=== PATIENT | female | born 1950 | race Caucasian/White ===

== ENCOUNTER 2017-12-13 17:41 | Emergency (ER) | payer OTHER ==
[~2017-12-13] VITALS: Ht 165.1 cm; Wt 69.3 kg
[2017-12-13 19:48] LABS: HEMATOCRIT 29.2 % (36.0-46.0); MCH 31.6 PG (29.0-34.0); MCHC 33.2 G/DL (30.0-36.0); MCV 95.1 FL (83-99); RBC DIS.WIDTH-CV 13.2 % (11.8-14.6); RBC DIS.WIDTH-SD 45.5 % (39-53); WHITE BLOOD COUNT 8.5 K/uL (4.1-10.2)
[2017-12-13 19:53] LABS: INTER. NORMALIZED RATIO 1.2
[2017-12-13 19:56] LABS: PTT 31.4 SEC (25-37)
[2017-12-13 20:00] LABS: HEMOGLOBIN 9.7 G/DL (11.9-15.5); PLATELET COUNT 306 K/uL (156-360); RED BLOOD COUNT 3.07 M/uL (3.80-5.20)
[2017-12-13 20:15] LABS: CHLORIDE 105 mEq/L (99-109); POTASSIUM 4.4 mEq/L (3.7-5.4); SODIUM 139 mEq/L (136-147)
[2017-12-13 20:16] LABS: GLUCOSE 82 mg/dL (70-99)
[2017-12-13 20:20] LABS: CREATININE 0.7 mg/dL (0.6-1.3); GFR ESTIMATE (CALCULATED) > 59 mL/min/
[2017-12-13 20:21] LABS: UREA NITROGEN (BUN) 11 mg/dL (9-23)
[2017-12-13] MEDS ORDERED: MEDROL DOSEPAK4 MG PO (21:05)
[2017-12-13 21:13] VITALS: BP 107/87
== END 2017-12-13 21:14 | disposition home or self-care (01) ==
LOC: EME 17:41
PROVIDERS: Nurse Practitioner Family
DX: R20.0 Anesthesia of skin (principal); M79.661 Pain in right lower leg; D64.9 Anemia, unspecified; Z98.890 Other specified postprocedural states; Z98.1 Arthrodesis status
CPT/HCPCS: 80048; 85027; 85610; 85730; 93970; 99281; 99284